=== PATIENT | female | born 1955 | race American Indian/Alaskan Native ===

== ENCOUNTER 2017-11-13 07:37 | Emergency (ER) | payer OTHER ==
[2017-11-13 08:28] LABS: Basophils % (Auto) 0.4 % (0.0-1.8); Eosinophils # (Auto) 0.1 K/mm3 (0.0-0.4); Eosinophils % (Auto) 1.9 % (0.0-4.3); Hematocrit 38.2 % (30.3-42.9); Hemoglobin 12.3 gm/dl (10.1-14.3); Lymphocytes # (Auto) 2.2 K/mm3 (1.2-5.4); Lymphocytes % (Auto) 33.3 % (13.4-35.0); Mean Corpuscular HGB Conc 32 % (30-34); Mean Corpuscular Hemoglobin 29 pg (28-32); Mean Corpuscular Volume 89 fl (79-97); Monocytes # (Auto) 0.5 K/mm3 (0.0-0.8); Monocytes % (Auto) 7.5 % (0.0-7.3); Platelet Count 183 K/mm3 (140-440); Red Blood Count 4.31 M/mm3 (3.65-5.03); Red Cell Distribution Width 14.1 % (13.2-15.2)
--- NOTE | 2017-11-13 08:36 | XRay Report ---
CHEST 2 VIEWS INDICATION: Shortness of breath. COMPARISON: None similar in this institution. FINDINGS: Frontal and lateral chest radiographs demonstrate mild cardiomegaly. Right hilum more prominent than the left with slight perihilar and bibasilar bronchovascular prominence. Minimal fluid or thickening along the right minor fissure. No large pleural effusions or cephalization however appreciated. Demineralized bones. CONCLUSION: Cardiomegaly and questionable pulmonary arterial hypertension without overt CHF at this time, as described. Please correlate. Thank you for the opportunity to participate in this patient's care.
[2017-11-13 08:47] LABS: BUN/Creatinine Ratio 18; Blood Urea Nitrogen 16 mg/dL (7-17); Calcium 8.7 mg/dL (8.4-10.2); Hemolysis Index 0
[2017-11-13] MEDS ORDERED: ATROVENT IH ONE ×2 (08:53→08:54)
[2017-11-13] MEDS ORDERED: DELTASONE PO ONE (08:53)
[2017-11-13] MEDS ORDERED: PROVENTIL IH ONE ×2 (08:53)
--- NOTE | 2017-11-13 09:00 | Emergency Department Report ---
HPI - General Chief Complaint: Dyspnea/Respdistress Time Seen by Provider: 11/13/17 08:49 - HPI HPI: Room 6 The patient is a 62-year-old female presenting with chief complaint of shortness of breath. The patient states this morning she began having wheezing and shortness of breath consistent with her asthma exacerbation. The patient states a family member had set off a "bug bomb" insecticide this morning and she believed this prompted her asthma attack. Patient denies pain of any type. Patient received some nebulizers from EMS and states she feels better than when she first came in Location: Lungs Duration: Onset this morning Quality: Wheezing Severity: Moderate Modifying factors: [see above] Context: [see above] Mode of transportation: [not driving] ED Past Medical Hx - Past Medical History Hx Hypertension: Yes Hx Congestive Heart Failure: Yes Hx Asthma: Yes Hx COPD: Yes - Surgical History Past Surgical History?: No - Family History Family history: no significant - Social History Smoking Status: Current Every Day Smoker (1/2 pack per day) Substance Use Type: None - Medications Home Medications: Home Medications Medication Instructions Recorded Confirmed Last Taken Type Prednisone [predniSONE 10 mg 10 mg PO .TAPER #1 tab.ds.pk 11/13/17 Unknown Rx (6-Day Pack, 21 Tabs)] ED Review of Systems ROS: Stated complaint: DIFFICULTY BREATHING Other details as noted in HPI Constitutional: no symptoms reported Eyes: denies: eye pain ENT: denies: throat pain Respiratory: shortness of breath, wheezing Cardiovascular: denies: chest pain Gastrointestinal: denies: abdominal pain Genitourinary: denies: dysuria Musculoskeletal: denies: back pain Neurological: denies: headache Physical Exam - Physical Exam Vital Signs: Vital Signs 11/13/17 08:02 Temperature 98.5 F Pulse Rate 87 Respiratory 19 Rate Blood Pressure 137/82 O2 Sat by Pulse 94 Oximetry Physical Exam: GENERAL: The patient is well-developed well-nourished female lying on stretcher not appearing to be in acute distress. [] HEENT: Normocephalic. Atraumatic. Extraocular motions are intact. Patient has moist mucous membranes. NECK: Supple. Trachea midline CHEST/LUNGS: Occasional faint wheeze. Occasional rhonchi. There is no respiratory distress noted. HEART/CARDIOVASCULAR: Regular. There is no tachycardia. There is no gallop rub or murmur. ABDOMEN: Abdomen is soft, nontender. Patient has normal bowel sounds. There is no abdominal distention. SKIN: There is no rash. There is no diaphoresis. NEURO: The patient is awake, alert, and oriented. The patient is cooperative. The patient has normal speech MUSCULOSKELETAL: There is no evidence of acute injury. ED Course Vital Signs 11/13/17 08:02 Temperature 98.5 F Pulse Rate 87 Respiratory 19 Rate Blood Pressure 137/82 O2 Sat by Pulse 94 Oximetry - Reevaluation(s) Reevaluation #1: 11/13/17 09:46 Patient states she feels improved and is ready to go home. ED Medical Decision Making - Lab Data Result diagrams: 11/13/17 08:07 11/13/17 08:07 Laboratory Tests 11/13/17 11/13/17 08:07 08:07 WBC 6.7 RBC 4.31 Hgb 12.3 Hct 38.2 MCV 89 MCH 29 MCHC 32 RDW 14.1 Plt Count 183 Lymph % (Auto) 33.3 [place] % (Auto) 7.5 H Eos % (Auto) 1.9 Baso % (Auto) 0.4 Lymph # 2.2 [place] # 0.5 Eos # 0.1 Baso # 0.0 Seg Neutrophils % 56.9 Seg Neutrophils # 3.8 Sodium 144 Potassium 3.7 Chloride 104.9 Carbon Dioxide 26 Anion Gap 17 BUN 16 Creatinine 0.9 Estimated GFR > 60 BUN/Creatinine Ratio 18 Glucose 110 H Calcium 8.7 - Radiology Data Radiology results: report reviewed (chest x-ray), image reviewed (chest x-ray) interpreted by me: Chest [id number]. No pneumothorax - Differential Diagnosis asthma exacerbation, CHF exacerbation, pneumonia, pneumothorax Critical care attestation.: If time is entered above; I have spent that time in minutes in the direct care of this critically ill patient, excluding procedure time. ED Disposition Clinical Impression: Acute asthma exacerbation Disposition: DC-01 TO HOME OR SELFCARE Is pt being admited?: No Does the pt Need Aspirin: No Condition: Stable Instructions: Asthma (ED) Additional Instructions: Return to the emergency department immediately should you develop worsening symptoms, fever, inability to tolerate food or liquid or any other concerns. Prescriptions: Prednisone [predniSONE 10 mg (6-Day Pack, 21 Tabs)] 10 mg PO .TAPER #1 tab.ds.pk Referrals: PRIMARY CARE, [Primary Care Provider] - 3-5 Days Time of Disposition: 09:45
[2017-11-13 09:51] VITALS: BP 130/85
== END 2017-11-13 09:50 | disposition home or self-care (01) ==
LOC: ED 07:37
DX: J45.901 Unspecified asthma with (acute) exacerbation (principal); I11.0 Hypertensive heart disease with heart failure; F17.200 Nicotine dependence, unspecified, uncomplicated
CPT/HCPCS: 36415; 71046; 80048; 85025; 94640; 99284; J7512